=== PATIENT | female | born 1975 | race Caucasian/White ===

== ENCOUNTER 2023-01-05 14:06 | Emergency (ER) | payer OTHER, SELFPAY ==
[2023-01-05 14:08] VITALS: BP 166/116; PULSE 90; RESP 16; TEMP 36.9; O2SAT 97; BMI 30.9
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
[2023-01-05 14:55] VITALS: BP 155/101; PULSE 77; RESP 16; TEMP 36.9; O2SAT 99
== END 2023-01-05 14:57 | disposition home or self-care (01) ==
PROVIDERS: Emergency Provider Student in an Organized Health Care Education/Training Program; PCP Family Medicine
DX: S76.012A Strain of muscle, fascia and tendon of left hip, initial encounter (principal); S39.012A Strain of muscle, fascia and tendon of lower back, initial encounter; V03.10XA Pedestrian on foot injured in collision with car, pick-up truck or van in traffic accident, initial encounter
CPT/HCPCS: 99283